=== PATIENT | female | born 1960 | race Caucasian/White ===

== ENCOUNTER 2017-07-10 17:35 | Inpatient (IN) | payer BC ==
[~2017-07-10] VITALS: Ht 165.1 cm; Wt 71.4 kg
[~2017-07-10 17:35] MED LIST: ALBUTEROL SULF8.5 GM IH; Aspirin E.C. PO; CARDIZEM CD,CA180 MG PO; CARDIZEM CD120 MG PO; ELIQUIS5 MG PO; FLEXERIL10 MG PO; LEVOFLOXACIN750 MG PO; LISINOPRIL10 MG PO; PREDNISONE10 MG PO; TAMIFLU75 MG PO; TRAMADOL HCL50 MG PO; VALSARTAN160 MG PO
[2017-07-10 17:51] LABS: HEMATOCRIT 39.7 % (36.0-46.0); HEMOGLOBIN 13.3 G/DL (11.9-15.5); MCH 31.4 PG (29.0-34.0); MCHC 33.5 G/DL (30.0-36.0); MCV 93.9 FL (83-99); PLATELET COUNT 306 K/uL (156-360); RBC DIS.WIDTH-CV 12.9 % (11.8-14.6); RBC DIS.WIDTH-SD 44.2 % (39-53); RED BLOOD COUNT 4.23 M/uL (3.80-5.20); WHITE BLOOD COUNT 18.8 K/uL (4.1-10.2)
[2017-07-10 17:56] VITALS: BP 178/141
[2017-07-10 18:07] LABS: APPEARANCE CLEAR ((CLEAR)); BILIRUBIN NEGATIVE; BLOOD SMALL; COLOR STRAW ((YELLOW)); GLUCOSE (STRIP) 150; KETONES NEGATIVE; LEUKOCYTES NEGATIVE; NITRITE NEGATIVE; PROTEIN (STRIP) 100; SPECIFIC GRAVITY 1.006 (1.000-1.030); UROBILINOGEN 0.2 MG/DL (0.2-1.0)
[2017-07-10 18:07] LABS: PTT 27.2 SEC (25-37)
[2017-07-10 18:15] LABS: TROP-I INTERPRETATION POSITIVE
[2017-07-10 18:16] LABS: TROPONIN-I 2.04 ng/mL (0.0-0.30)
[2017-07-10 18:23] LABS: AMPHETAMINE NEGATIVE (500 ng/mL); BARBITURATES NEGATIVE (200 ng/mL); BENZODIAZEPINES NEGATIVE (150 ng/mL); BUPRENORPHINE NEGATIVE (10 ng/mL); COCAINE NEGATIVE (150 ng/mL); METHADONE PRESUMPTIVE POSITIVE (200 ng/mL); METHAMPHETAMINE NEGATIVE (500 ng/mL); OPIATES (MORPHINE) PRESUMPTIVE POSITIVE (100 ng/mL); OXYCODONE NEGATIVE (100 ng/mL); PHENCYCLIDINE NEGATIVE (25 ng/mL); PROPOXYPHENE NEGATIVE (300 ng/mL); THC CANNABINOIDS NEGATIVE (50 ng/mL); TRICYCLIC ANTIDEPRESSANTS NEGATIVE (300 ng/mL)
[2017-07-10 18:25] LABS: AMYLASE 55 IU/L (1-118); CHLORIDE 102 mEq/L (99-109); POTASSIUM 4.1 mEq/L (3.7-5.4); SODIUM 138 mEq/L (136-147)
[2017-07-10 18:27] LABS: GLUCOSE 281 mg/dL (70-99)
[2017-07-10 18:30] LABS: SERUM ETHYL ALCOHOL < 10 mg/dL
[2017-07-10 18:31] LABS: CREATININE 0.9 mg/dL (0.6-1.3); GFR ESTIMATE (CALCULATED) > 59 mL/min/
[2017-07-10 18:32] LABS: UREA NITROGEN (BUN) 13 mg/dL (9-23)
[2017-07-10 18:34] LABS: LIPASE 51 U/L (1.0-51.0)
[2017-07-10 18:38] LABS: BACTERIA 1+ /HPF; EPITHELIAL CELLS 1+ /HPF; MUCUS 1+ /LPF; RED BLOOD CELLS 0-5 /HPF (0-5); UCUL ADDED? YES
[2017-07-10 19:01] LABS: ABS NEUTROPHIL COUNT 10.5; BAND NEUTROPHILS 0.9 % (0-8.0); EOSINOPHIL ABS CT 0.7; EOSINOPHILS 3.5 % (0-5.0); LYMPHOCYTES 35.4 % (15.0-45.0); METAMYELOCYTES 0.9 %; MONOCYTES 3.5 % (0-9.0); MYELOCYTES 0.9 %; PLAT.SUFFICIENCY ADEQUATE; SEG.NEUTROPHILS 54.9 % (46.0-76.0)
[2017-07-10 19:14] LABS: BASE EXCESS -10.5 mEq/L (-3 to +3); BICARBONATE 18.5 mEq/L (22-26); COMMENTS - BLOOD GASES C+; DEVICE VENT; FI02 100 %; MECHANICAL RATE 20 resp/min; METHEMOGLOBIN 0.9 % (0-1.5); MODE AC; PCO2 53 mm Hg (35-45); PO2 58 mm Hg (80-100); SITE CATH LAB DRAW; TOTAL RESP RATE 20 resp/min; pH 7.15 (7.35-7.45)
[2017-07-10 19:15] LABS: PEEP 5 CM/H20; TIDAL VOLUME 450 ML
== END 2017-07-10 19:58 | DRG 247 ==
LOC: EME → EDBD 17:35 → EME 17:35 → ENRESERV 18:01 → CATH 18:03 → 2SOUTH 18:14 → ENRESERV 19:31 → CANRESERV 19:31 → 2SOUTH 19:58
PROVIDERS: Emergency Medicine; Internal Medicine Interventional Cardiology
PROC: 0BH17EZ Insertion of Endotracheal Airway into Trachea, Via Natural or Artificial Opening (ICD-10-PCS; principal; 2017-07-10)
PROC: 5A1935Z Respiratory Ventilation, Less than 24 Consecutive Hours (ICD-10-PCS; principal; 2017-07-10)
PROC: 4A023N7 Measurement of Cardiac Sampling and Pressure, Left Heart, Percutaneous Approach (ICD-10-PCS; 2017-07-10)
PROC: 027035Z Dilation of Coronary Artery, One Artery with Two Drug-eluting Intraluminal Devices, Percutaneous Approach (ICD-10-PCS; 2017-07-10)
PROC: 02723ZZ Dilation of Coronary Artery, Three Arteries, Percutaneous Approach (ICD-10-PCS; 2017-07-10)
PROC: B2151ZZ Fluoroscopy of Left Heart using Low Osmolar Contrast (ICD-10-PCS; 2017-07-10)
PROC: B2111ZZ Fluoroscopy of Multiple Coronary Arteries using Low Osmolar Contrast (ICD-10-PCS; 2017-07-10)
PROC: 5A12012 Performance of Cardiac Output, Single, Manual (ICD-10-PCS; 2017-07-10)
DX: I21.19 ST elevation (STEMI) myocardial infarction involving other coronary artery of inferior wall (principal); R57.0 Cardiogenic shock; I25.82 Chronic total occlusion of coronary artery; I25.10 Atherosclerotic heart disease of native coronary artery without angina pectoris; I49.01 Ventricular fibrillation; I34.0 Nonrheumatic mitral (valve) insufficiency; I10 Essential (primary) hypertension; I48.0 Paroxysmal atrial fibrillation; I25.5 Ischemic cardiomyopathy; J44.9 Chronic obstructive pulmonary disease, unspecified; F19.10 Other psychoactive substance abuse, uncomplicated; F17.210 Nicotine dependence, cigarettes, uncomplicated; I25.2 Old myocardial infarction
CPT/HCPCS: 36600; 71045; 80048; 81003; 82150; 82803; 83690; 84484; 84999; 85025; 85347; 85610; 85730; 86850; 86900; 86901; 87086; 93005; 94002; 99281; 99285; C1725; C1769; C1874; C1887; C1894; G0480; J0171; J0461; J1160; J1644; J1940; J2250; J3010; J3475